=== PATIENT | female | born 1985 ===

== ENCOUNTER 2019-03-06 22:30 | Emergency (ER) | payer OTHER ==
[~2019-03-06] VITALS: Ht 177.8 cm; Wt 86.2 kg
[2019-03-06] MEDS ORDERED: LIPITOR20 MG (23:23)
[2019-03-07] MEDS ORDERED: KETO10TA2 PO (03:01)
== END 2019-03-07 04:51 | disposition home or self-care (01) ==
LOC: ER 22:30
DX: S52.122A Displaced fracture of head of left radius, initial encounter for closed fracture (principal); W18.39XA Other fall on same level, initial encounter; Y93.89 Activity, other specified; Y92.89 Other specified places as the place of occurrence of the external cause; Y99.8 Other external cause status

== ENCOUNTER 2019-03-16 09:17 | Outpatient (CLI) | payer OTHER ==
[~2019-03-16 09:17] MED LIST: KETO10TA2 PO; LIPITOR20 MG
== END 2019-03-16 09:19 | disposition home or self-care (01) ==
LOC: RAD 09:17
DX: S52.125A Nondisplaced fracture of head of left radius, initial encounter for closed fracture (principal)

== ENCOUNTER → 2020-01-19 | Outpatient (CLI) | payer OTHER | END | disposition home or self-care (01) | LOC: OFIC 805 12:00 | PROVIDERS: ATTEND Otolaryngology | DX: R09.81 Nasal congestion (principal); J32.8 Other chronic sinusitis; R09.82 Postnasal drip ==

== ENCOUNTER 2020-06-27 11:12 | Outpatient (CLI) | payer OTHER | END 2020-06-27 12:07 | disposition home or self-care (01) | LOC: OFIC 805 11:12 | PROVIDERS: ATTEND Otolaryngology Otology & Neurotology | DX: J30.89 Other allergic rhinitis (principal); R09.82 Postnasal drip; R09.81 Nasal congestion; J32.8 Other chronic sinusitis ==